=== PATIENT | female | born 1965 | race Caucasian/White ===

== ENCOUNTER 2021-06-04 18:36 | Emergency (ER) | payer OTHER ==
[2021-06-04 20:25] LABS: Absolute Lymphocytes (CBC) 1.3 K/uL (0.7-4.9); Basophils % 0.5 % (0-1.3); Hematocrit 35.7 % (36.0-45.0); MPV 8.3 fL (7.6-11.3); RBC Red Blood Cell Count 4.45 M/uL (3.86-4.86)
[2021-06-04 20:26] LABS: Protime INR 1.06
[2021-06-04 20:44] LABS: ALT/SGPT 19 U/L (12-78); AST/SGOT 17 U/L (15-37); Albumin 3.8 g/dL (3.4-5.0); Alkaline Phosphatase 61 U/L (45-117); BUN Blood Urea Nitrogen 11 mg/dL (7-18); Bicarbonate 26 mmol/L (21-32); Bilirubin Direct < 0.1 mg/dL (0-0.2); Bilirubin Total 0.3 mg/dL (0.2-1.0); Glucose Level 97 mg/dL (74-106); NT PRO-BNP 143 pg/mL (<125); Potassium 3.7 mmol/L (3.5-5.1); Protein, Total 7.8 g/dL (6.4-8.2); Sodium Level 142 mmol/L (136-145); Troponin (Emerg Dept Use Only) < 0.02 ng/mL (0.0-0.045)
[2021-06-04] MEDS ORDERED: HYDRALAZINE HCL 20 MG/ML VIAL ONE ×2 (21:43→22:47)
--- NOTE | 2021-06-04 22:05 | RAD REPORT ---
EXAM DESCRIPTION: RAD - Chest Single View - 06/04/2021 9:25 pm CLINICAL HISTORY: CHEST PAIN COMPARISON: CHEST PA AND LAT 2 VIEW dated 01/08/2015; ABDOMEN 1 VIEW KUB dated 08/08/2012; CHEST PA A ND LAT 2 VIEW dated 01/24/2012 FINDINGS: Lines: None. Lungs: No evidence of edema or pneumonia. Pleural: No significant pleural effusions or pneumothorax. Cardiac: Cardiomegaly. Bones: No acute fractures. Other: IMPRESSION: No acute cardiopulmonary disease.
--- NOTE | 2021-06-04 23:08 | EDPHYS ---
Physician Documentation [facility] Name: Martine Barrera Age: 55 yrs Sex: Female : 1965 Arrival Date: 06/04/2021 Time: 18:38 Bed 24 Private MD: Isela Feliz C ED Physician Corey Kenyon HPI: 06/05 07:13 This 55 yrs old Female presents to ER via Ambulatory with complaints of High tw4 Blood Pressure, Lethargic. 07:13 The patient has elevated blood pressure and discovered this at hospital. Onset: The tw4 symptoms/episode began/occurred today. Modifying factors: The symptoms are aggravated by. Associated signs and symptoms: The patient has no apparent associated signs or symptoms. The patient has not experienced similar symptoms in the past. 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 - Social history:: Smoking status: Patient denies any tobacco usage or history of. ROS: 06/05 07:13 Constitutional: Negative for fever, chills, and weight loss, Eyes: Negative for injury, tw4 pain, redness, and discharge, Neck: Negative for injury, pain, and swelling, Cardiovascular: Negative for chest pain, palpitations, and edema, Respiratory: Negative for shortness of breath, cough, wheezing, and pleuritic chest pain, Abdomen/GI: Negative for abdominal pain, nausea, vomiting, diarrhea, and constipation, Back: Negative for injury and pain, Skin: Negative for injury, rash, and discoloration, Neuro: Negative for headache, weakness, numbness, tingling, and seizure. Exam: 07:13 Constitutional: This is a well developed, well nourished patient who is awake, alert, tw4 and in no acute distress. Head/Face: Normocephalic, atraumatic. Chest/axilla: Normal chest wall appearance and motion. Nontender with no deformity. No lesions are appreciated. Cardiovascular: Regular rate and rhythm with a normal S1 and S2. No gallops, murmurs, or rubs. Normal PMI, no JVD. No pulse deficits. Respiratory: Lungs have equal breath sounds bilaterally, clear to auscultation and percussion. No rales, rhonchi or wheezes noted. No increased work of breathing, no retractions or nasal flaring. Abdomen/GI: Soft, non-tender, with normal bowel sounds. No distension or tympany. No guarding or rebound. No evidence of tenderness throughout. Skin: Warm, dry with normal turgor. Normal color with no rashes, no lesions, and no evidence of cellulitis. MS/ Extremity: Pulses equal, no cyanosis. Neurovascular intact. Full, normal range of motion. Neuro: Awake and alert, GCS 15, oriented to person, place, time, and situation. Cranial nerves II-XII grossly intact. Motor strength 5/5 in all extremities. Sensory grossly intact. Cerebellar exam normal. Normal gait. Vital Signs: 06/04 19:17 BP 167 / 106; Pulse 75; Resp 16; Temp 98.4(O); Pulse Ox 99% ; Weight 77.11 kg; Height 5 vg1 ft. 8 in. (172.72 cm); Pain 0/10; 20:18 BP 170 / 99; Pulse 76; Resp 18; Pulse Ox 97% on R/A; lh3 21:15 BP 175 / 106; lh3 21:39 BP 156 / 89; Pulse Ox 99% on R/A; lh3 22:20 BP 154 / 108; lh3 23:03 BP 153 / 91; lh3 19:17 Body Mass Index 25.85 (77.11 kg, 172.72 cm) vg1 [place] Coma Score: 20:19 Eye Response: spontaneous(4). Verbal Response: oriented(5). Motor Response: obeys lh3 commands(6). Total: 15. MDM: 23:07 Patient medically screened. tw4 06/05 07:14 Data reviewed: vital signs, nurses notes. Data interpreted: Pulse oximetry: tw4 Interpretation: normal. Counseling: I had a detailed discussion with the patient and/or guardian regarding: the historical points, exam findings, and any diagnostic results supporting the discharge/admit diagnosis. Special discussion: I discussed with the patient/guardian in detail that at this point there is no indication for admission to the hospital. It is understood, however, that if the symptoms persist or worsen the patient needs to return immediately for re-evaluation. 06/04 19:23 Order name: Basic Metabolic Panel [facility] 06/04 19:23 Order name: CBC with Diff; Complete Time: 21:13 [facility] 06/04 21:13 Interpretation: Normal except: HCT 35.7; MCH 26.4. 06/04 19:23 Order name: LFT's; Complete Time: 21:13 [facility] 06/04 21:13 Interpretation: GLOB 4.0; A/G 1.0. 06/04 19:23 Order name: Magnesium; Complete Time: 21:13 [facility] 06/04 21:14 Interpretation: Within normal limits: MG 2.0. 06/04 19:23 Order name: NT PRO-BNP; Complete Time: 21:13 [facility] 06/04 19:23 Order name: PT-INR; Complete Time: 21:13 [facility] 06/04 19:23 Order name: Troponin (emerg Dept Use Only); Complete Time: 21:13 [facility] 06/04 19:23 Order name: XRAY Chest (1 view) [facility] 06/04 19:23 Order name: EKG; Complete Time: 19:24 [facility] 06/04 19:23 Order name: Cardiac monitoring; Complete Time: 20:13 [facility] 06/04 19:23 Order name: Basic Metabolic Panel; Complete Time: 21:13 [facility] 06/04 21:13 Interpretation: CL 111; GFR 78. [facility] 06/04 19:23 Order name: EKG - Nurse/Tech; Complete Time: 20:18 [facility] 06/04 19:23 Order name: IV Saline Lock; Complete Time: 20:18 06/04 19:23 Order name: Labs collected and sent; Complete Time: 20:18 [facility] 06/04 19:23 Order name: O2 Per Protocol; Complete Time: 20:18 06/04 19:23 Order name: O2 Sat Monitoring; Complete Time: 20:18 tw Administered Medications: 06/04 21:21 Drug: hydrALAZINE 10 mg Route: IVP; Site: left antecubital; lh3 22:27 Drug: hydrALAZINE 10 mg Route: IVP; Site: left antecubital; lh3 23:31 Drug: Zofran (Ondansetron) 4 mg Route: IVP; Site: left antecubital; lh3 Disposition Summary: 06/04/21 23:07 Discharge Ordered Location: Home tw4 Problem: new tw4 Symptoms: have improved tw4 Condition: Stable tw4 Diagnosis - Hypertension tw4 Followup: tw4 - With: Private Physician - When: Upon discharge from the Emergency Department - Reason: Recheck today's complaints, Continuance of care, Re-evaluation by your physician Followup: tw4 - With: Isela Feliz MD - When: Upon discharge from the Emergency Department - Reason: Recheck today's complaints, Continuance of care, Re-evaluation by your physician Discharge Instructions: - Discharge Summary Sheet tw4 - Hypertension, Adult, [id number] tw4 Forms: - Medication Reconciliation Form tw4 - Thank You Letter tw4 - Antibiotic Education tw4 - Prescription Opioid Use tw4 Prescriptions: - Norvasc 10 mg Oral Tablet - take 1 tablet by ORAL route once daily; 30 tablet; Refills: 0, Product tw4 Selection Permitted - Zofran 4 mg Oral Tablet - take 1 tablet by ORAL route every 12 hours As needed; 6 tablet; Refills: 0, tw4 Product Selection Permitted Signatures: Dispatcher [employer] Corey Burrows MD MD tw4 Nola Harman RN RN vg1 Elvira Joseph RN RN 3 Corrections: (The following items were deleted from the chart) 19:21 19:19 Home Meds: None; vg1 vg1
--- NOTE | 2021-06-04 23:08 | ER ---
Nurse's Notes [facility] Name: Martine Barrera Age: 55 yrs Sex: Female : 1965 Arrival Date: 06/04/2021 Time: 18:38 Bed 24 Private MD: Isela Feliz C Diagnosis: Hypertension Presentation: 06/04 19:17 Chief complaint: Patient states: " I received an iron infusion yesterday at Dr Cruz 1 office, not too sure if this has anything to do with my BP but it was high today about 196/113, this was about 30 minutes ago'. Pt states blurry vision, h/a, and nausea. Stated CP that is intermittent, denies radiation. Coronavirus screen: Vaccine status: Patient reports receiving the 1st dose of the Covid vaccine. Client denies travel out of the [place] in the last 14 days. Ebola Screen: Patient negative for fever greater than or equal to 101.5 degrees Fahrenheit, and additional compatible Ebola Virus Disease symptoms. Initial Sepsis Screen: Does the patient meet any 2 criteria? No. Patient's initial sepsis screen is negative. Does the patient have a suspected source of infection? No. Patient's initial sepsis screen is negative. Risk Assessment: Do you want to hurt yourself or someone else? Patient reports no desire to harm self or others. Onset of symptoms was June 04, 2021. 19:17 Method Of Arrival: Ambulatory [facility] 19:17 Acuity: LUZ MARIA 3 vg1 Triage Assessment: 19:19 General: Appears in no apparent distress. comfortable, Behavior is calm, cooperative. vg1 Pain: Denies pain. 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 - Social history:: Smoking status: Patient denies any tobacco usage or history of. Screenin:19 Abuse screen: Denies threats or abuse. Nutritional screening: No deficits noted. lh3 Tuberculosis screening: No symptoms or risk factors identified. Fall Risk No fall in past 12 months (0 pts). No secondary diagnosis (0 pts). IV access (20 points). Ambulatory Aid- None/Bed Rest/Nurse Assist (0 pts). Gait- Normal/Bed Rest/Wheelchair (0 pts) Mental Status- Oriented to own ability (0 pts). Total Corral Fall Scale indicates No Risk (0-24 pts). Assessment: 20:19 General: Appears in no apparent distress. Behavior is calm, cooperative, appropriate lh3 for age. Neuro: Reports blurred vision dizziness, headache. Cardiovascular: Reports fatigue, lightheadedness, nausea, since past 2 days Capillary refill < 3 seconds Rhythm is sinus rhythm. Vital Signs: 19:17 BP 167 / 106; Pulse 75; Resp 16; Temp 98.4(O); Pulse Ox 99% ; Weight 77.11 kg; Height 5 vg1 ft. 8 in. (172.72 cm); Pain 0/10; 20:18 BP 170 / 99; Pulse 76; Resp 18; Pulse Ox 97% on R/A; lh3 21:15 BP 175 / 106; lh3 21:39 BP 156 / 89; Pulse Ox 99% on R/A; lh3 22:20 BP 154 / 108; lh3 23:03 BP 153 / 91; lh3 19:17 Body Mass Index 25.85 (77.11 kg, 172.72 cm) vg1 [place] Coma Score: 20:19 Eye Response: spontaneous(4). Verbal Response: oriented(5). Motor Response: obeys lh3 commands(6). Total: 15. ED Course: 18:38 Patient arrived in ED. am2 18:39 Isela Feliz MD is Private Physician. am2 19:19 Triage completed. vg1 19:19 Arm band placed on. vg1 19:23 Corey Kenyon MD is Attending Physician. tw4 19:23 EKG done, by ED staff. vg1 20:04 Elviar Joseph, JI is Primary Nurse. lh3 20:13 Basic Metabolic Panel Sent. lh3 20:18 CBC with Diff Sent. lh3 20:18 Magnesium Sent. lh3 20:18 LFT's Sent. lh3 20:18 NT PRO-BNP Sent. lh3 20:18 PT-INR Sent. lh3 20:18 Troponin (emerg Dept Use Only) Sent. lh3 20:19 Patient has correct armband on for positive identification. Bed in low position. Call 3 light in reach. Side rails up X 1. Side rails up X2. Adult w/ patient. 20:19 No provider procedures requiring assistance completed. Inserted saline lock: 20 gauge lh3 in left forearm, using aseptic technique. Blood collected. 21:25 XRAY Chest (1 view) In Process Unspecified. EDIN 23:07 Isela Feliz MD is Referral Physician. [facility] 06/05 00:55 IV discontinued, bleeding controlled. lh3 Administered Medications: 06/04 21:21 Drug: hydrALAZINE 10 mg Route: IVP; Site: left antecubital; lh3 22:27 Drug: hydrALAZINE 10 mg Route: IVP; Site: left antecubital; 3 23:31 Drug: Zofran (Ondansetron) 4 mg Route: IVP; Site: left antecubital; 3 Outcome: 23:07 Discharge ordered by . [facility] 06/05 00:55 Discharged to home ambulatory. 3 Condition: good Discharge instructions given to patient, Instructed on discharge instructions, follow up and referral plans. medication usage, Demonstrated understanding of instructions, follow-up care, medications, Prescriptions given X 2. 00:55 Patient left the ED. 3 Signatures: Dispatcher [employer] EDIN Domitila Mcintyre am2 Corey Kenyon MD MD tw4 Nola Harman, RN RN vg1 Elvira Joseph, RN RN 3 Corrections: (The following items were deleted from the chart) 06/04 19:21 19:19 Home Meds: None; vg1 vg1 20:21 20:19 Inserted saline lock: 20 gauge in left forearm, using aseptic technique. 3 lh3
[2021-06-04] MEDS ORDERED: ONDANSETRON 4 MG/2 ML VIAL ONE (23:45)
[2021-06-05 01:03] VITALS: TEMP 98.4
[2021-06-05 01:07] VITALS: O2SAT 99
[2021-06-05 01:09] VITALS: BP 153/91
== END 2021-06-05 00:55 | disposition home or self-care (01) ==
LOC: ER 18:36
DX: I10 Essential (primary) hypertension (principal)
CPT/HCPCS: 93005; 85025; 80048; 36415; 83735; 85610; 80076; 84484; 83880; 71045; 96375; 96374; 99284; J0360 ×2; J2405

== ENCOUNTER 2023-06-15 10:23 | Emergency (ER) | payer OTHER ==
--- OUTSIDE RECORDS SUMMARY | 2023-06-15 10:27 | XMS REPORT | Continuity of Care Document ---
:1965 Author Organization [facility] t Address [address] [place] [address] [place] [id number] Care Team Providers Name Role Phone CRISTAL CASH Attending Clinician Unavailable Problems This patient has no known problems. Allergies, Adverse Reactions, Alerts This patient has no known allergies or adverse reactions. Social History Social Habit Start Date Stop Date Quantity Comments Source Sex Assigned At [birth year] ALYSSA Parrish 00:00:00 00:00:00 [facility] Medications This patient has no known medications. Procedures This patient has no known procedures. Encounters Start End Encounter Admission Attending Care Care Encounter Source Date/Time Date/Time Type Type Clinicians Facility Department ID 2022-01-24 2022-01-[address] [id number] 00:00:00 00:00:00 CRISTAL Results This patient has no known results.
[2023-06-15] MEDS ORDERED: NA CHLORIDE 0.9% 1,000 ML ONE ×2 (10:55→11:44)
[2023-06-15] MEDS ORDERED: PROMETHAZINE INJ 25 MG/ML AMP ONE (10:55)
[2023-06-15 10:59] LABS: Absolute Lymphocytes (CBC) 0.9 K/uL (0.7-4.9); Hematocrit 43.8 % (36.0-45.0); Lymphocytes % 12.1 % (15.3-44.8); MCV 83.5 fL (80-100); MPV 8.6 fL (7.6-11.3); Platelets 347 thou/uL (152-406); RBC Red Blood Cell Count 5.24 M/uL (3.86-4.86)
[2023-06-15 11:06] LABS: Protime INR 1.1
--- NOTE | 2023-06-15 11:09 | RAD REPORT ---
EXAM DESCRIPTION: RAD - Forearm Left - 06/15/2023 10:57 am CLINICAL HISTORY: Pain;Swelling;Animal bite COMPARISON: No comparisons FINDINGS/IMPRESSION: No acute fracture. No malalignment. No significant focal degenerative changes. No radiopaque foreign body. Mild soft tissue injury at the volar aspect of the distal forearm. No sof t tissue gas.
--- NOTE | 2023-06-15 11:09 | RAD REPORT ---
EXAM DESCRIPTION: RAD - Chest Single View - 06/15/2023 10:57 am CLINICAL HISTORY: chills COMPARISON: Chest Pa And Lat (2 Views) dated 08/31/2021; Chest Single View dated 06/04/2021; CHEST PA AND LAT 2 VIEW dated 01/08/2015; ABDOMEN 1 VIEW KUB dated 08/08/2012 FINDINGS: Lines: None. Lungs: No evidence of edema or pneumonia. Pleural: No significant pleural effusions or pneumothorax. Cardiac: The heart size is within normal limits. Mediastinum: Within normal limits. Bones: No acute fractures. Other: None IMPRESSION: No acute cardiopulmonary disease.
[2023-06-15 11:19] LABS: Albumin 4.7 g/dL (3.4-5.0); Bilirubin Total 0.6 mg/dL (0.2-1.0); Potassium 3.4 mEq/L (3.5-5.1); Protein, Total 9.8 g/dL (6.4-8.2)
[2023-06-15 12:29] LABS: Specific Gravity > 1.030 (1.005-1.030); Urine Bacteria <20 /HPF (<20); Urine Bilirubin 1+ (Negative); Urine Blood Negative (Negative); Urine Clarity Extremely Turbid (Clear); Urine Color Yellow (Yellow); Urine Glucose NEGATIVE (Negative); Urine Mucus Slight /HPF (None Seen); Urine Protein 1+ (Negative); Urine RBC <5 /HPF (None Seen); Urine Urobilinogen 2+ (Normal); Urine pH 5.5 (5.0-7.0)
--- NOTE | 2023-06-15 12:31 | EDPHYS ---
Physician Documentation [facility] Name: Martine Barrera Age: 57 yrs Sex: Female : 1965 Arrival Date: 06/15/2023 Time: 10:23 Bed 6 Private MD: ED Physician Alejandro Ramírez HPI: 06/15 10:59 This 57 yrs old Female presents to ER via Ambulatory with complaints of Nausea, Fever. snw 10:59 The patient presents to the emergency department with nausea, that is moderate. The snw patient presents to the emergency department with vomiting. Onset: The symptoms/episode began/occurred 1 week(s) ago, since she started Augmentin s/p dogbite to left forearm. Associated signs and symptoms: Pertinent positives:. The patient has not experienced similar symptoms in the past. last week at [facility] for dogbite to left forearm. Historical: - Allergies: 10:36 No Known Allergies; hb - Home Meds: 10:36 Dexilant Oral [Active]; Zoloft Oral [Active]; lisinopril-hydrochlorothiazide oral hb [Active]; - PMHx: 10:36 Anemia; Scleroderma; Hypertension (Scleroderma); hb - PSHx: 10:36 None; hb - Immunization history:: Adult Immunizations up to date. - Social history:: Smoking status: Patient denies any tobacco usage or history of. ROS: 10:59 Eyes: Negative for injury, pain, redness, and discharge, ENT: Negative for injury, snw pain, and discharge, Neck: Negative for injury, pain, and swelling, Cardiovascular: Negative for chest pain, palpitations, and edema, Respiratory: Negative for shortness of breath, cough, wheezing, and pleuritic chest pain, Back: Negative for injury and pain, : Negative for injury, bleeding, discharge, and swelling, MS/Extremity: Negative for injury and deformity, Skin: Negative for injury, rash, and discoloration, Neuro: Negative for headache, weakness, numbness, tingling, and seizure, Psych: Negative for depression, anxiety, suicide ideation, homicidal ideation, and hallucinations, 10:59 Constitutional: Positive for body aches, chills, fatigue, malaise, 10:59 Abdomen/GI: Positive for nausea, Exam: 10:57 Head/Face: Normocephalic, atraumatic. Eyes: Pupils equal round and reactive to light, snw extra-ocular motions intact. Lids and lashes normal. Conjunctiva and sclera are non-icteric and not injected. Cornea within normal limits. Periorbital areas with no swelling, redness, or edema. ENT: Nares patent. No nasal discharge, no septal abnormalities noted. Tympanic membranes are normal and external auditory canals are clear. Oropharynx with no redness, swelling, or masses, exudates, or evidence of obstruction, uvula midline. Mucous membranes moist. Neck: Trachea midline, no thyromegaly or masses palpated, and no cervical lymphadenopathy. Supple, full range of motion without nuchal rigidity, or vertebral point tenderness. No Meningismus. Chest/axilla: Normal chest wall appearance and motion. Nontender with no deformity. No lesions are appreciated. Cardiovascular: Regular rate and rhythm with a normal S1 and S2. No gallops, murmurs, or rubs. Normal PMI, no JVD. No pulse deficits. Respiratory: Lungs have equal breath sounds bilaterally, clear to auscultation and percussion. No rales, rhonchi or wheezes noted. No increased work of breathing, no retractions or nasal flaring. Abdomen/GI: Soft, non-tender, with normal bowel sounds. No distension or tympany. No guarding or rebound. No evidence of tenderness throughout. Back: No spinal tenderness. No costovertebral tenderness. Full range of motion. Neuro: Awake and alert, GCS 15, oriented to person, place, time, and situation. Cranial nerves II-XII grossly intact. Motor strength 5/5 in all extremities. Sensory grossly intact. Cerebellar exam normal. Normal gait. Psych: Awake, alert, with orientation to person, place and time. Behavior, mood, and affect are within normal limits. 10:57 Constitutional: The patient appears alert, awake, anxious, uncomfortable, 10:57 Skin: Appearance: normal except for affected area, injury, bite(s), of the left wrist, scabbed, not erythematous, + edema, Vital Signs: 10:34 BP 147 / 97; Pulse 80; Resp 16; Temp 98.2(O); Pulse Ox 96% on R/A; Weight 77.11 kg; hb Height 5 ft. 8 in. ; Pain 5/10; 10:52 BP 120 / 76; Pulse 82; Resp 16; Pulse Ox 97% on R/A; mb9 12:17 BP 117 / 99; Pulse 67; Resp 18; Pulse Ox 100% on R/A; mb9 10:34 Body Mass Index 25.85 (77.11 kg, 172.72 cm) hb 10:34 Pain Scale: Adult hb MDM: 10:29 Patient medically screened. snw 12:31 Differential diagnosis: Nonspecific abd pain, viral gastroenteritis, gastroenteritis. snw Data reviewed: vital signs, nurses notes, lab test result(s). I considered the following discharge prescriptions or medication management in the emergency department Medications were administered in the Emergency Department. See MAR. Counseling: I had a detailed discussion with the patient and/or guardian regarding the historical points, exam findings, and any diagnostic results supporting the discharge/admit diagnosis, lab results, the need for outpatient follow up, for definitive care, to return to the emergency department if symptoms worsen or persist or if there are any questions or concerns that arise at home. Special discussion: Based on the history and exam findings, there is no indication for further emergent testing or inpatient evaluation. I discussed with the patient/guardian the need to see the primary care provider for further evaluation of the symptoms. 06/15 10:34 Order name: Blood Culture Adult (2) [facility] 06/15 10:34 Order name: CBC with Diff; Complete Time: 11:00 w 06/15 10:34 Order name: CMP; Complete Time: 11:26 [facility] 06/15 10:34 Order name: Lactate w/ 2H reflex if indic.; Complete Time: 11:26 [facility] 06/15 10:34 Order name: Protime (+inr); Complete Time: 11:11 w 06/15 10:34 Order name: Ptt, Activated; Complete Time: 11:11 w 06/15 10:34 Order name: Urinalysis w/ reflexes; Complete Time: 12:29 w 06/15 10:34 Order name: COVID-19 SARS RT PCR; Complete Time: 11:36 snw 06/15 10:34 Order name: Flu; Complete Time: 11:26 w 06/15 10:34 Order name: Chest Single View XRAY; Complete Time: 11:11 w 06/15 10:34 Order name: Forearm Left XRAY; Complete Time: 11:11 snw 06/15 10:34 Order name: EKG; Complete Time: 10:35 snw 06/15 10:34 Order name: Accucheck; Complete Time: 10:49 snw 06/15 10:34 Order name: Cardiac monitoring; Complete Time: 10:49 snw 06/15 10:34 Order name: EKG - Nurse/Tech; Complete Time: 10:49 sn06/15 10:34 Order name: IV Saline Lock - Large Bore; Complete Time: 10:49 snw 06/15 10:34 Order name: Labs collected and sent; Complete Time: 10:49 snw 06/15 10:34 Order name: O2 Per Protocol; Complete Time: 10:49 sn06/15 10:34 Order name: O2 Sat Monitoring; Complete Time: 10:49 06/15 10:34 Order name: Vital Signs; Complete Time: 10:49 snw EC:50 Rate is 77 beats/min. Rhythm is regular. QRS Monument is Normal. WA interval is normal. QT snw interval is normal. Clinical impression: NSR w/ Non-specific ST/T Changes. Administered Medications: 10:48 Drug: NS 0.9% IV 1000 ml IV at 125 ml/hr continuous Route: IV; Rate: 125 ml/hr; Site: [facility] right antecubital; 12:31 Follow up: Response: No adverse reaction; IV Status: Completed infusion mb9 10:49 Drug: Promethazine IVP 12.5 mg IVP once Route: IVP; Site: right antecubital; [facility] 12:31 Follow up: Response: No adverse reaction mb9 11:35 Drug: NS 0.9% IV 1000 ml IV at 1 bolus Per protocol; 1000 mL bolus Route: IV; Rate: 1 mb9 bolus; Site: right antecubital; 12:31 Follow up: Response: No adverse reaction; IV Status: Completed infusion mb9 Disposition: 13:55 Co-signature as Attending Physician, Alejandro Ramírez MD I reviewed the patient's care rn provided by the Advanced Practice Provider and agree with the diagnosis and treatment plan. Disposition Summary: 06/15/23 12:30 Discharge Ordered Notes: Location: Home snw Condition: Stable snw Diagnosis - Influenza due to other identified influenza virus with gastrointestinal snw manifestations - Bitten by dog snw - Dehydration snw Followup: snw - With: Emergency Department - When: As needed - Reason: Worsening of condition Followup: snw - With: Private Physician - When: 2 - 3 days - Reason: Recheck today's complaints, Continuance of care, Re-evaluation by your physician Discharge Instructions: - Discharge Summary Sheet snw - Dehydration, Adult snw - Potassium Content of Foods snw - Influenza, Adult snw - Hypokalemia snw - Rehydration, Adult snw Forms: - Medication Reconciliation Form snw - Thank You Letter snw - Antibiotic Education snw - Prescription Opioid Use snw - Patient Portal Instructions snw - Leadership Thank You Letter snw Prescriptions: - promethazine 25 mg Oral Tablet - take 1 tablet ORAL route every 6 hours As needed; 20 tablet; Refills: 0, snw Product Selection Permitted Signatures: Dispatcher [employer] EDMS Beth Giordano, LEVI-C [id number] JAVA DEVELOPER-Csnw Alejandro Ramírez MD MD rn Baxter, Heather RN RN Luz Borrero RN RN [id number] Josefina Pierce, RN RN mb9
--- NOTE | 2023-06-15 12:31 | ER ---
Nurse's Notes [facility] Name: Martine Barrera Age: 57 yrs Sex: Female : 1965 Arrival Date: 06/15/2023 Time: 10:23 Bed 6 Private MD: Diagnosis: Influenza due to other identified influenza virus with gastrointestinal manifestations;Bitten by dog;Dehydration Presentation: 06/15 10:34 Chief complaint: N/V and chills after being bitten by dog on left forearm one week ago. hb On Augmentin and ketorolac. Coronavirus screen: At this time, the client does not indicate any symptoms associated with coronavirus-19. Ebola Screen: No symptoms or risks identified at this time. Initial Sepsis Screen: Does the patient meet any 2 criteria? No. Patient's initial sepsis screen is negative. Does the patient have a suspected source of infection? No. Patient's initial sepsis screen is negative. Risk Assessment: Do you want to hurt yourself or someone else? Patient reports no desire to harm self or others. Onset of symptoms was June 08, 2023. 10:34 Method Of Arrival: Ambulatory hb 10:34 Acuity: LUZ MARIA 3 hb Triage Assessment: 10:50 General: Appears uncomfortable, Behavior is calm, cooperative. Pain: Denies pain. EENT: mb9 No signs and/or symptoms were reported regarding the EENT system. Neuro: Vasquez Agitation-Sedation Scale (RASS): 0 - Alert and Calm Level of Consciousness is awake, alert, obeys commands, Oriented to person, place, time, situation, Appropriate for age. Cardiovascular: Heart tones S1 S2 present. Respiratory: Airway is patent Respiratory effort is even, unlabored, Respiratory pattern is regular, symmetrical. GI: Abdomen is flat, non-distended, Reports nausea, vomiting. : No signs and/or symptoms were reported regarding the genitourinary system. Derm: Skin is intact, Skin is clammy, Skin is pale, Skin temperature is warm. Musculoskeletal: Range of motion: intact in all extremities, Swelling present in left FA. Injury Description: Bite sustained to left FA caused by a dog, is was sustained 1 week ago. Historical: - Allergies: 10:36 No Known Allergies; hb - Home Meds: 10:36 Dexilant Oral [Active]; Zoloft Oral [Active]; lisinopril-hydrochlorothiazide oral hb [Active]; - PMHx: 10:36 Anemia; Scleroderma; Hypertension (Scleroderma); hb - PSHx: 10:36 None; hb - Immunization history:: Adult Immunizations up to date. - Social history:: Smoking status: Patient denies any tobacco usage or history of. Screenin:31 [facility] ED Fall Risk Assessment (Adult) History of falling in the last 3 months, mb9 including since admission No falls in past 3 months (0 pts) Confusion or Disorientation No (0 pts) Intoxicated or Sedated No (0 pts) Impaired Gait No (0 pts) Mobility Assist Device Used No (0 pt) Altered Elimination No (0 pt) Score/Fall Risk Level 0 - 2 = Low Risk Oriented to surroundings, Maintained a safe environment, Educated pt \T\ family on fall prevention, incl call for assistance when getting out of bed. Abuse screen: Denies threats or abuse. Nutritional screening: No deficits noted. Tuberculosis screening: No symptoms or risk factors identified. Assessment: 10:52 Reassessment: see triage assessment. mb9 11:35 Reassessment: Patient and/or family updated on plan of care and expected duration. Pain mb9 level reassessed. Patient is alert, oriented x 3, equal unlabored respirations, skin warm/dry/pink. Patient states feeling better. Patient states symptoms have improved. 12:39 Reassessment: Patient and/or family updated on plan of care and expected duration. Pain mb9 level reassessed. Patient is alert, oriented x 3, equal unlabored respirations, skin warm/dry/pink. Patient states feeling better. Patient states symptoms have improved. Vital Signs: 10:34 BP 147 / 97; Pulse 80; Resp 16; Temp 98.2(O); Pulse Ox 96% on R/A; Weight 77.11 kg; hb Height 5 ft. 8 in. ; Pain 5/10; 10:52 BP 120 / 76; Pulse 82; Resp 16; Pulse Ox 97% on R/A; mb9 12:17 BP 117 / 99; Pulse 67; Resp 18; Pulse Ox 100% on R/A; mb9 10:34 Body Mass Index 25.85 (77.11 kg, 172.72 cm) hb 10:34 Pain Scale: Adult hb ED Course: 10:26 Patient arrived in ED. 10:29 Beth Giordano, PLANT ECOLOGIST-C is [facility]. snw 10:29 Dereck Arriaga MD is Attending Physician. snw 10:30 Josefina Pierce, RN is Primary Nurse. mb9 10:30 Inserted saline lock: 20 gauge in right antecubital area, using aseptic technique. mb9 10:30 EKG done, by ED staff, reviewed by Josefina Pierce RN. mb9 10:31 Arm band placed on. mb9 10:31 Placed in gown. Bed in low position. Call light in reach. Side rails up X 1. Client mb9 placed on continuous cardiac and pulse oximetry monitoring. NIBP monitoring applied. 10:36 Triage completed. hb 10:52 Blood Culture Adult (2) Sent. mb9 10:52 Flu Sent. mb9 10:52 COVID-19 SARS RT PCR Sent. mb9 10:52 CBC with Diff Sent. mb9 10:52 CMP Sent. mb9 10:52 Protime (+inr) Sent. mb9 10:52 Ptt, Activated Sent. mb9 10:59 Chest Single View XRAY In Process Unspecified. EDMS 10:59 Forearm Left XRAY In Process Unspecified. EDMS 11:37 Alejandro Ramírez MD is Attending Physician. snw 12:17 No provider procedures requiring assistance completed. mb9 12:39 IV discontinued, intact, bleeding controlled, No redness/swelling at site. Pressure mb9 dressing applied. Administered Medications: 10:48 Drug: NS 0.9% IV 1000 ml IV at 125 ml/hr continuous Route: IV; Rate: 125 ml/hr; Site: jl7 right antecubital; 12:31 Follow up: Response: No adverse reaction; IV Status: Completed infusion mb9 10:49 Drug: Promethazine IVP 12.5 mg IVP once Route: IVP; Site: right antecubital; jl7 12:31 Follow up: Response: No adverse reaction mb9 11:35 Drug: NS 0.9% IV 1000 ml IV at 1 bolus Per protocol; 1000 mL bolus Route: IV; Rate: 1 mb9 bolus; Site: right antecubital; 12:31 Follow up: Response: No adverse reaction; IV Status: Completed infusion mb9 Medication: 10:31 VIS not applicable for this client. mb9 Outcome: 12:30 Discharge ordered by . keith 12:39 Discharged to home ambulatory, mb9 12:39 Condition: stable 12:39 Discharge instructions given to patient, Instructed on discharge instructions, follow up and referral plans. Demonstrated understanding of instructions, follow-up care, medications, Prescriptions given X 1, 12:40 Patient left the ED. mb9 Signatures: Dispatcher [employer] EDMS Beth Giordano, PLANT ECOLOGIST-C PLANT ECOLOGIST-Csnw Josefina Luis, Reg Reg mr Sissy Pemberton, RN RN Luz Borrero RN RN jl7 Josefina Pierce, RN RN mb9
[2023-06-15 13:02] VITALS: TEMP 98.2
[2023-06-15 13:04] VITALS: BP 117/99; O2SAT 100
--- NOTE | 2023-06-18 12:39 | EKG ---
Test Date: 2023-06-15 Test Time: 10:45:14 Autocad Detailer: MAURICE MEASUREMENT RESULTS: Intervals: Rate: 77 LA: 162 QRSD: 80 QT: 376 QTc: 425 [place]: P: 59 LA: 162 QRS: 23 T: 70 INTERPRETIVE STATEMENTS: Normal sinus rhythm Low voltage QRS Borderline ECG Compared to ECG 06/04/2021 19:16:51 Low QRS voltage now present Electronically Signed On 06-18-23 12:32:59 CDT by Tano Saldaña
== END 2023-06-15 12:40 | disposition home or self-care (01) ==
LOC: ER 10:23
DX: J10.2 Influenza due to other identified influenza virus with gastrointestinal manifestations (principal); E86.0 Dehydration; Z20.822 Contact with and (suspected) exposure to COVID-19; S50.872A Other superficial bite of left forearm, initial encounter
CPT/HCPCS: 96361; 87040 ×2; 85025; 81001; 36415; 85610; 83605; 85730; 80053; 87635; 87804 ×2; 71045; 73090; 96374; 99284; J2550; J7030 ×2; 93005

== ENCOUNTER 2023-08-21 14:26 | Emergency (ER) | payer OTHER ==
--- OUTSIDE RECORDS SUMMARY | 2023-08-21 14:43 | XMS REPORT | Continuity of Care Document ---
:1965 Author Organization [facility] Address [address] [place] [address] [place] [id number] Care Team Providers Name Role Phone [email or web address] Attending Clinician Unavailable CRISTAL CASH Attending Clinician Unavailable [email or web address] Admitting Clinician Unavailable Payers Payer Name Policy Type Policy Number Effective Date Expiration Date Shala HOWARD (POS) [id number] 2022 00:00:00 Problems This patient has no known problems. Allergies, Adverse Reactions, Alerts This patient has no known allergies or adverse reactions. Social History Social Habit Start Date Stop Date Quantity Comments Source Sexual orientation [facility] Sex Assigned At [birth year] [facility] 00:00:00 00:00:00 [facility] Medications This patient has no known medications. Procedures This patient has no known procedures. Encounters Start End Encounter Admission Attending Care Care Encounter Source Date/Time Date/Time Type Type Clinicians Facility Department ID 2023-07-10 2023-07-10 Outpatient [email or web address] PRIV PRIV [id number] [facility] 00:00:00 00:00:00 diyala_S [id number] Medic al 2023-07-04 2023-07-04 Outpatient [email or web address] PRIV PRIV [id number] [facility] 00:00:00 00:00:00 diyala_S [id number] Medic al 2023-06-27 2023-06-27 Outpatient [email or web address] PRIV PRIV [id number] [facility] 00:00:00 00:00:00 diyala_S [id number] Medic al 2022-01-24 2022-01-24 Outpatient CY KAPLANMaureen [facility] [id number] [facility] 00:00:00 00:00:00 CRISTAL Results This patient has no known results.
--- NOTE | 2023-08-21 15:07 | RAD REPORT ---
EXAM DESCRIPTION: RAD - Chest Single View - 08/21/2023 3:00 pm CLINICAL HISTORY: syncop Chest pain. COMPARISON: Chest Single View dated 06/15/2023; Chest Pa And Lat (2 Views) dated 08/31/2021; Chest Sin gle View dated 06/04/2021; CHEST PA AND LAT 2 VIEW dated 01/08/2015 FINDINGS: Portable technique limits examination quality. The lungs are grossly clear. The heart is normal in size. No displaced fractures. IMPRESSION: No acute intrathoracic process suspected.
[2023-08-21 15:26] LABS: Absolute Lymphocytes (CBC) 1.2 K/uL (0.7-4.9); Hematocrit 37.9 % (36.0-45.0); Lymphocytes % 18.6 % (15.3-44.8); MCV 82.8 fL (80-100); MPV 8.1 fL (7.6-11.3); Platelets 273 thou/uL (152-406); RBC Red Blood Cell Count 4.58 M/uL (3.86-4.86)
[2023-08-21 15:31] LABS: Protime INR 1.08
[2023-08-21 15:49] LABS: Albumin 3.9 g/dL (3.4-5.0); Bilirubin Direct 0.1 mg/dL (0-0.2); Bilirubin Indirect, Calculated 0.3 mg/dL (0.2-0.8); Bilirubin Total 0.4 mg/dL (0.2-1.0); Potassium 3.8 mEq/L (3.5-5.1)
--- NOTE | 2023-08-21 16:32 | EDPHYS ---
Physician Documentation [facility] Name: Martine Barrera Age: 57 yrs Sex: Female : 1965 Arrival Date: 08/21/2023 Time: 14:26 Bed 17 Private MD: ED Physician Bishop Pandya HPI: 08/21 15:59 This 57 yrs old Female presents to ER via EMS with complaints of syncope. kb 15:59 Patient is a 57-year-old female who had a syncopal episode while getting her nails done kb just prior to arrival. States she was sitting in the chair started feeling weird and believes she passed out. States she woke up while still sitting in the chair and asked to lay down. Patient laid on the floor until EMS arrived. Patient states she felt back to normal by the time EMS got there but since they were there she figured she come get checked out.. Historical: - Allergies: 14:44 No Known Allergies; mb9 - Home Meds: 14:44 Zoloft Oral [Active]; lisinopril-hydrochlorothiazide oral [Active]; Metoprolol Tartrate mb9 Oral [Active]; - PMHx: 14:44 Anemia; Hypertension (Scleroderma); Scleroderma; mb9 - PSHx: 14:44 None; mb9 - Immunization history:: Adult Immunizations up to date. - Social history:: Smoking status: Patient denies any tobacco usage or history of. ROS: 15:59 Constitutional: Negative for fever, chills, and weight loss, kb 15:59 Neuro: Positive for syncope, 15:59 All other systems are negative, Exam: 15:59 Constitutional: This is a well developed, well nourished patient who is awake, alert, kb and in no acute distress. Head/Face: Normocephalic, atraumatic. ENT: Moist Mucous membranes Cardiovascular: Regular rate Respiratory: Respirations even and unlabored. No increased work of breathing. Talking in full sentences Abdomen/GI: Soft, non-tender. No distention Skin: Warm, dry with normal turgor. Normal color. MS/ Extremity: Pulses equal, no cyanosis. Neurovascular intact. Full, normal range of motion. Neuro: Awake and alert, GCS 15, oriented to person, place, time, and situation. Moves all extremities. Normal gait. 15:59 ECG was reviewed by the Attending Physician. kb Vital Signs: 14:41 BP 117 / 72; Pulse 59; Resp 18; Temp 97.3; Pulse Ox 100% ; Weight 83.91 kg; Height 5 mb9 ft. 4 in. ; 16:00 BP 121 / 81; Pulse 66; Resp 19; Pulse Ox 98% on R/A; nj1 17:26 BP 124 / 87; Pulse 64; Resp 16; Pulse Ox 98% on R/A; iw 14:41 Body Mass Index 31.75 (83.91 kg, 162.56 cm) mb9 MDM: 14:27 Patient medically screened. kb 15:59 Data reviewed: vital signs, nurses notes. kb 16:00 Differential Diagnosis: cardiac arrhythmia, idiopathic syncope, vasovagal episode. kb 16:30 Consideration of Admission/Observation Escalation of care including kb admission/observation considered. admission considered, but pt states she is feeling normal and in agreement with outpatient follow up. Historians other than the Patient: EMS: [facility]. Counseling: I had a detailed discussion with the patient and/or guardian regarding the historical points, exam findings, and any diagnostic results supporting the discharge/admit diagnosis, lab results, radiology results, the need for outpatient follow up, a family practitioner, to return to the emergency department if symptoms worsen or persist or if there are any questions or concerns that arise at home. 08/21 14:28 Order name: Basic Metabolic Panel; Complete Time: 15:49 kb 08/21 14:28 Order name: CBC with Diff; Complete Time: 15:39 kb 08/21 14:28 Order name: Hepatic Function; Complete Time: 15:49 kb 08/21 14:28 Order name: Magnesium; Complete Time: 15:49 kb 08/21 14:28 Order name: Protime (+inr); Complete Time: 15:33 kb 08/21 14:28 Order name: Ptt, Activated; Complete Time: 15:33 kb 08/21 14:28 Order name: Troponin High Sensitivity; Complete Time: 15:49 kb 08/21 14:28 Order name: Chest Single View XRAY; Complete Time: 15:09 kb 08/21 14:28 Order name: EKG; Complete Time: 14:29 kb 08/21 14:28 Order name: Cardiac monitoring; Complete Time: 14:59 kb 08/21 14:28 Order name: EKG - Nurse/Tech; Complete Time: 15:09 kb 08/21 14:28 Order name: IV Saline Lock; Complete Time: 14:46 kb 08/21 14:28 Order name: Labs collected and sent; Complete Time: 14:59 kb 08/21 14:28 Order name: NPO; Complete Time: 14:46 kb 08/21 14:28 Order name: O2 Per Protocol; Complete Time: 14:50 kb 08/21 14:28 Order name: O2 Sat Monitoring; Complete Time: 14:50 kb EC:59 Rate is 62 beats/min. Rhythm is regular. QRS [place] is Normal. MS interval is normal at kb 184 msec. QRS interval is normal at 80 msec. QT interval is normal at 446 msec. Administered Medications: No medications were administered Disposition: 16:50 I was immediately available on-site in the Emergency Department for consultation in the ms3 care of the patient. Disposition Summary: 08/21/23 16:32 Discharge Ordered Notes: Location: Home Condition: Stable kb Diagnosis - Syncope kb Followup: kb - With: Emergency Department - When: As needed - Reason: Worsening of condition Followup: kb - With: Private Physician - When: 2 - 3 days - Reason: Recheck today's complaints, Continuance of care, Re-evaluation by your physician Discharge Instructions: - Discharge Summary Sheet kb - Syncope, [id number] kb Forms: - Medication Reconciliation Form kb - Thank You Letter kb - Antibiotic Education kb - Prescription Opioid Use kb - Patient Portal Instructions kb - Leadership Thank You Letter kb - Family Work Release tm3 Signatures: Dispatcher [employer] Jannie Abdalla FNP-C FNP-Bishop Zuniga DO DO ms3 Josefina Pierce, RN RN mb9
--- NOTE | 2023-08-21 16:32 | ER ---
Nurse's Notes [facility] Name: Martine Barrera Age: 57 yrs Sex: Female : 1965 Arrival Date: 08/21/2023 Time: 14:26 Bed 17 Private MD: Diagnosis: Syncope Presentation: 08/21 14:41 Chief complaint: EMS states: "toned out for syncopal episode while getting her nails mb9 done. She was getting lightheaded while sitting in the chair. Pt believes she passed out while sitting up. No fall or head injury, no LOC. Gave 1 liter of NS via 18 g to right AC". Coronavirus screen: At this time, the client does not indicate any symptoms associated with coronavirus-19. Ebola Screen: No symptoms or risks identified at this time. Initial Sepsis Screen: Does the patient meet any 2 criteria? No. Patient's initial sepsis screen is negative. Does the patient have a suspected source of infection? No. Patient's initial sepsis screen is negative. Risk Assessment: Do you want to hurt yourself or someone else? Patient reports no desire to harm self or others. Onset of symptoms. 14:41 Method Of Arrival: EMS: [facility] mb9 14:41 Acuity: LUZ MARIA 3 mb9 Historical: - Allergies: 14:44 No Known Allergies; mb9 - Home Meds: 14:44 Zoloft Oral [Active]; lisinopril-hydrochlorothiazide oral [Active]; Metoprolol Tartrate mb9 Oral [Active]; - PMHx: 14:44 Anemia; Hypertension (Scleroderma); Scleroderma; mb9 - PSHx: 14:44 None; mb9 - Immunization history:: Adult Immunizations up to date. - Social history:: Smoking status: Patient denies any tobacco usage or history of. Screenin:10 [facility] ED Fall Risk Assessment (Adult) Score/Fall Risk Level 0 - 2 = Low Risk nj1 Oriented to surroundings, Maintained a safe environment, Hourly rounding (assess needs \\T\\ fall precautionary measures) done. Abuse screen: Denies threats or abuse. Denies injuries from another. Nutritional screening: No deficits noted. Tuberculosis screening: No symptoms or risk factors identified. Assessment: 15:00 General: Appears in no apparent distress. comfortable, Behavior is calm, cooperative, nj1 appropriate for age. Pain: Denies pain. Neuro: Level of Consciousness is awake, alert, obeys commands, Oriented to person, place, time, situation. Cardiovascular: Patient's skin is warm and dry. Respiratory: Airway is patent Respiratory effort is even, unlabored. 16:00 Reassessment: Patient appears in no apparent distress at this time. Patient and/or nj1 family updated on plan of care and expected duration. Pain level reassessed. Patient is alert, oriented x 3, equal unlabored respirations, skin warm/dry/pink. Patient denies pain at this time. Vital Signs: 14:41 BP 117 / 72; Pulse 59; Resp 18; Temp 97.3; Pulse Ox 100% ; Weight 83.91 kg; Height 5 mb9 ft. 4 in. ; 16:00 BP 121 / 81; Pulse 66; Resp 19; Pulse Ox 98% on R/A; nj1 17:26 BP 124 / 87; Pulse 64; Resp 16; Pulse Ox 98% on R/A; iw 14:41 Body Mass Index 31.75 (83.91 kg, 162.56 cm) mb9 ED Course: 14:27 Patient arrived in ED. kb 14:27 Jannie M[facility]quez F[facility]-C [facility]. kb 14:28 Bishop Pandya DO is Attending Physician. kb 14:44 Karen Marsh, JI is Primary Nurse. nj1 14:44 Triage completed. mb9 14:45 Arm band placed on. mb9 14:45 Maintain EMS IV. Dressing intact. Good blood return noted. Site clean \\T\\ dry. Gauge \\T\\ mb 9 site: 18 g right AC. 14:59 Basic Metabolic Panel Sent. mb9 14:59 CBC with Diff Sent. mb9 14:59 Hepatic Function Sent. mb9 14:59 Magnesium Sent. mb9 14:59 Protime (+inr) Sent. mb9 14:59 Ptt, Activated Sent. mb9 14:59 Troponin High Sensitivity Sent. mb9 15:02 Chest Single View XRAY In Process Unspecified. EDMS 15:10 Patient has correct armband on for positive identification. Bed in low position. Call nj1 light in reach. Adult w/ patient. Provided Education on: CALL LIGHT, FALL PRECAUTIONS. 17:26 No provider procedures requiring assistance completed. IV discontinued, intact, iw bleeding controlled, No redness/swelling at site. Pressure dressing applied. Administered Medications: No medications were administered Medication: 17:26 VIS not applicable for this client. iw Outcome: 16:32 Discharge ordered by MD. ocampo 17:26 Discharged to home ambulatory, with family, iw 17:26 Condition: good 17:26 Discharge instructions given to patient, Instructed on discharge instructions, follow up and referral plans. 17:27 Patient left the ED. iw Signatures: Dispatcher [employer] EDJannie Arguello, SALES ASSOC-C SALES ASSOC-Naomie Villatoro, RN RN Josefina Tolentino RN RN mb9 Karen Marsh RN RN nj1
[2023-08-21 18:34] VITALS: TEMP 97.3
[2023-08-21 18:35] VITALS: O2SAT 98
[2023-08-21 18:37] VITALS: BP 124/87
--- NOTE | 2023-08-23 15:21 | EKG ---
Test Date: 2023-08-21 Test Time: 15:05:40 [employer]olesale Parts Salesperson: RAMIRO MEASUREMENT RESULTS: Intervals: Rate: 62 TN: 184 QRSD: 80 QT: 440 QTc: 446 [place]: P: 42 TN: 184 QRS: 32 T: 45 INTERPRETIVE STATEMENTS: Normal sinus rhythm Normal ECG Compared to ECG 06/15/2023 10:45:14 No significant changes Electronically Signed On 08-23-23 15:13:27 COOK HELPER PASTRY by Tano Saldaña
== END 2023-08-21 17:27 | disposition home or self-care (01) ==
LOC: ER 14:26
DX: R55 Syncope and collapse (principal)
CPT/HCPCS: 36415; 71045; 80048; 80076; 83735; 84484; 85025; 85610; 85730; 93005; 99284

== ENCOUNTER 2025-07-22 17:50 | Emergency (ER) | payer OTHER ==
--- NOTE | 2025-07-22 18:15 | EDPHYS ---
Physician Documentation [facility] Name: Martine Barrera Age: 59 yrs Sex: Female : 1965 Arrival Date: 07/22/2025 Time: 17:50 Bed IW4 Private MD: ED Physician Bishop Pandya HPI: 07/22 18:18 This 59 yrs old Female presents to ER via Ambulatory with complaints of Chest dr5 Pain, Arm Pain. 18:18 This 59 yrs old Female presents to ER via Ambulatory with complaints of Arm Pain. dr5 18:18 Onset: The symptoms/episode began/occurred acutely. Patient is a 59-year-old female dr5 with history of anemia, hypertension, scleroderma coming in with right hand pain after being stuck on accident by her home cactus. Patient reports she was moving her plants inside which excellently struck her third finger. Patient denies fever, chest pain, nausea, vomiting, diarrhea. Patient reports she was stuck about 2 hours ago.. Historical: - Allergies: 18:04 No Known Allergies; bp - PMHx: 18:04 Anemia; Hypertension (Scleroderma); Scleroderma; bp - Immunization history:: Adult Immunizations up to date. - Infectious Disease History:: Denies. - Social history:: Smoking status: Patient denies any tobacco usage or history of. ROS: 18:18 Constitutional: as per hpi dr5 Exam: 18:18 Constitutional: This is a well developed, well nourished patient who is awake, alert, dr5 and in no acute distress. Head/Face: Normocephalic, atraumatic. Eyes: Pupils equal round and reactive to light, extra-ocular motions intact. Lids and lashes normal. Conjunctiva and sclera are non-icteric and not injected. Cornea within normal limits. Periorbital areas with no swelling, redness, or edema. Chest/axilla: Normal chest wall appearance and motion. Nontender with no deformity. No lesions are appreciated. Cardiovascular: Regular rate and rhythm with a normal S1 and S2. Normal PMI, no JVD. No pulse deficits. Respiratory: Lungs have equal breath sounds bilaterally, clear to auscultation. No rales, rhonchi or wheezes noted. No increased work of breathing, no retractions or nasal flaring. Abdomen/GI: Soft, non-tender, non-distended Back: No spinal tenderness. No costovertebral tenderness. Full range of motion. Skin: Warm, dry with normal turgor. Normal color with no rashes, no lesions, and no evidence of cellulitis. MS/ Extremity: Pulses equal, no cyanosis. Neurovascular intact. Full, normal range of motion. Neuro: Awake and alert, GCS 15, oriented to person, place, time, and situation. Cranial nerves II-XII grossly intact. Motor strength 5/5 in all extremities. Sensory grossly intact. Cerebellar exam normal. Normal gait. Vital Signs: 18:03 BP 137 / 93; Pulse 71; Resp 16; Temp 98; Pulse Ox 100% ; bp MDM: 17:53 Medical Screening Exam initiated dr5 18:23 Differential diagnosis: viral Infection, bacterial infection, URI. Data reviewed: vital dr5 signs, nurses notes. Consideration of Admission/Observation Escalation of care including admission/observation considered. Escalation considered if patient found to have fever or swelling on hands. I considered the following discharge prescriptions or medication management in the emergency department I discussed and recommended Over The Counter medications, Medications were administered in the Emergency Department. See MAR. Historians other than the Patient: Hypertension, anemia, scleroderma. Care significantly affected by the following chronic conditions: Hypertension, Anemia. Care significantly affected by the following Social Determinants of Health: Poor access to healthcare and/or lack of insurance, Poor access to transportation, Problems related to employment. Counseling: I had a detailed discussion with the patient and/or guardian regarding the historical points, exam findings, and any diagnostic results supporting the discharge/admit diagnosis, the presence of at least one elevated blood pressure reading (>120/80) during this emergency department visit, the need for outpatient follow up, for definitive care, a family practitioner, to return to the emergency department if symptoms worsen or persist or if there are any questions or concerns that arise at home. Medication response: Dexamethasone. Response to treatment: the patient's symptoms have mildly improved after treatment. Special discussion: I discussed with the patient/guardian in detail that at this point there is no indication for admission to the hospital. It is understood, however, that if the symptoms persist or worsen the patient needs to return immediately for re-evaluation. Based on the history and exam findings, there is no indication for further emergent testing or inpatient evaluation. I discussed with the patient/guardian the need to see the primary care provider for further evaluation of the symptoms. ED course: Will have patient follow-up with primary care doctor. Dexamethasone IM given in ER and will give patient steroid Dosepak for inflammation. Recommended antihistamines, Benadryl, and Pepcid. All questions answered. Strict ER precautions given.. Administered Medications: 18:20 Drug: Dexamethasone IM 10 mg IM once Route: IM; Site: right gluteus; cm10 18:24 Follow up: Response: Medication administered at discharge. cm10 Disposition: 18:53 I was immediately available on-site in the Emergency Department for consultation in the ms3 care of the patient. Disposition Summary: 07/22/25 18:14 Discharge Ordered Notes: Location: Home dr5 Condition: Stable dr5 Diagnosis - Pain in right hand dr5 Followup: dr5 - With: Emergency Department - When: As needed - Reason: Worsening of condition Followup: dr5 - With: Private Physician - When: 1 - 2 days - Reason: Recheck today's complaints, Continuance of care, Re-evaluation by your physician Discharge Instructions: - Discharge Summary Sheet dr5 - Musculoskeletal Pain dr5 Forms: - Medication Reconciliation Form dr5 - Patient Portal Instructions dr5 - Leadership Thank You Letter dr5 Prescriptions: - Medrol (Joseph) 4 mg Oral Tablets, Dose Pack - take 1 tablet ORAL route as directed - follow package instructions; 1 packet; dr5 Refills: 0, Product Selection Permitted Signatures: Dispatcher [employer] EDToby Orona, RN RN Bishop Levi DO DO ms3 Aniya Upton RN RN cm10 Zeyad Reyes, SECONDARY SCHOOL PRINCIPAL-C SECONDARY SCHOOL PRINCIPAL-Cdr5 Corrections: (The following items were deleted from the chart) 18:13 17:53 EKG - Nurse/Tech ordered. dr5 dr5 18:13 17:53 Labs collected and sent ordered. dr5 dr5 18:14 17:53 O2 Sat Monitoring ordered. dr5 dr5 18:21 17:54 BASIC METABOLIC PANEL+C.LAB.BRZ ordered. EDMS EDMS 18:21 17:54 Troponin High Sensitivity+C.LAB.BRZ ordered. EDMS EDMS 18:23 17:54 CBC+H.LAB.BRZ ordered. EDMS EDMS 18:24 17:53 Cardiac monitoring ordered. dr5 cm10 18:24 17:53 IV Saline Lock ordered. dr5 cm10 18:24 17:53 Oxygen Per Protocol ordered. dr5 cm10
--- NOTE | 2025-07-22 18:15 | ER ---
Nurse's Notes [facility] Name: Martine Barrera Age: 59 yrs Sex: Female : 1965 Arrival Date: 07/22/2025 Time: 17:50 Bed IW4 Private MD: Diagnosis: Pain in right hand Presentation: 07/22 18:03 Chief complaint: Patient states: R HAND INJURED BY CACTUS SPINES. Coronavirus screen: bp At this time, the client does not indicate any symptoms associated with coronavirus-19. Ebola Screen: No symptoms or risks identified at this time. Initial Sepsis Screen: Does the patient meet any 2 criteria? No. Patient's initial sepsis screen is negative. Does the patient have a suspected source of infection? No. Patient's initial sepsis screen is negative. Risk Assessment: Do you want to hurt yourself or someone else? Patient reports no desire to harm self or others. Onset of symptoms was July 22, 2025 at 16:00. 18:03 Method Of Arrival: Ambulatory bp 18:03 Acuity: LUZ MARIA 4 bp Historical: - Allergies: 18:04 No Known Allergies; bp - PMHx: 18:04 Anemia; Hypertension (Scleroderma); Scleroderma; bp - Immunization history:: Adult Immunizations up to date. - Infectious Disease History:: Denies. - Social history:: Smoking status: Patient denies any tobacco usage or history of. Screenin:26 [facility] ED Fall Risk Assessment (Adult) History of falling in the last 3 months, cm10 including since admission No falls in past 3 months (0 pts) Confusion or Disorientation No (0 pts) Intoxicated or Sedated No (0 pts) Impaired Gait No (0 pts) Mobility Assist Device Used No (0 pt) Altered Elimination No (0 pt) Score/Fall Risk Level 0 - 2 = Low Risk Oriented to surroundings, Maintained a safe environment, Hourly rounding (assess needs \T\ fall precautionary measures) done. Abuse screen: Denies threats or abuse. Denies injuries from another. Nutritional screening: No deficits noted. Tuberculosis screening: No symptoms or risk factors identified. Assessment: 18:20 General: Appears in no apparent distress. comfortable, Behavior is calm, cooperative. cm10 Pain: Complains of pain in right hand Pain does not radiate. Pain currently is 3 out of 10 on a pain scale. 18:20 Neuro: No deficits noted. Level of Consciousness is awake, alert, obeys commands, cm10 Oriented to person, place, time, situation, Appropriate for age. Respiratory: No deficits noted. Airway Respiratory effort is even, unlabored, Respiratory pattern is regular, symmetrical. Musculoskeletal: No deficits noted. Range of motion: intact in all extremities, Reports pain in right hand. Vital Signs: 18:03 BP 137 / 93; Pulse 71; Resp 16; Temp 98; Pulse Ox 100% ; bp ED Course: 17:53 Patient arrived in ED. im 17:53 Zeyad Reyes FNP-C is PHCP. dr5 17:53 Bishop Pandya DO is Attending Physician. dr5 18:04 Triage completed. bp 18:04 Arm band placed on. bp 18:26 Patient has correct armband on for positive identification. Provided Education on: cm10 follow-up instructions. 18:26 No provider procedures requiring assistance completed. Patient did not have IV access cm10 during this emergency room visit. Administered Medications: 18:20 Drug: Dexamethasone IM 10 mg IM once Route: IM; Site: right gluteus; cm10 18:24 Follow up: Response: Medication administered at discharge. cm10 Medication: 18:26 VIS not applicable for this client. cm10 Outcome: 18:14 Discharge ordered by MD. dr5 18:26 Discharged to home ambulatory, with significant other, cm10 18:26 Condition: good 18:26 Discharge instructions given to patient, Instructed on discharge instructions, follow up and referral plans. medication usage, Demonstrated understanding of instructions, follow-up care, medications, Prescriptions given X 1, 18:27 Patient left the ED. cm10 Signatures: Toby Medina, RN RN Jocelyn Ruth Clarissa, RN RN cm10 Zeyad Reyes FNP-C TRACTOR TRAILER OPERATOR-Cdr5 Corrections: (The following items were deleted from the chart) 18:26 18:20 Pain: Complains of pain in right hand Pain does not radiate. cm10 cm10
[2025-07-22 18:47] VITALS: BP 137/93; TEMP 98; O2SAT 100
== END 2025-07-22 18:27 | disposition home or self-care (01) ==
LOC: ER 17:50
DX: M79.641 Pain in right hand (principal)
CPT/HCPCS: 96372; 99284; J1100